=== PATIENT | female | born 1975 | race Caucasian/White ===

== ENCOUNTER → 2017-02-19 | Outpatient (CLI) | payer BC ==
--- NOTE | 2017-02-20 14:41 | MAMMOGRAPHY REPORT ---
BILATERAL DIGITAL SCREENING MAMMOGRAM TOMOSYNTHESIS WITH CAD: 02/19/2017 CLINICAL HISTORY: Routine screening. Patient has no complaints. TECHNIQUE: Breast tomosynthesis in addition to standard 2D mammography was performed. Current study was also evaluated with a Computer Aided Detection (CAD) system. COMPARISON: Prior outside mammograms dated 10/02/2015, 06/27/2014, 07/20/2014. BREAST COMPOSITION: There are scattered areas of fibroglandular density in both breasts. FINDINGS: Again noted is a focal asymmetry in the left upper inner quadrant posteriorly which measur es at least 4.6 x 4.2 cm on the cc view. There are faint calcifications seen within the asymmetry, w hich may be increased compared to prior exams, however, the apparent increase could be due to technic al factors. Recommend spot magnification views and possible breast ultrasound for further evaluation . The remainder of both breasts are stable compared to prior exams, without suspicious masses, calcific ations, or areas of architectural distortion noted. IMPRESSION: ACR BI-RADS CATEGORY 0: INCOMPLETE EVALUATION: NEED ADDITIONAL IMAGING EVALUATION Focal asymmetry with associated calcifications, for which additional imaging evaluation is recommende d. The patient will be called to schedule an appointment. Approximately 10% of breast cancers are not detected with mammography. A negative mammographic report should not delay biopsy if a clinically suggestive mass is present. Cheyanne Connor M.D. /:02/19/2017 16:43:39 Adjunct Spanish Instructor: Corina ALONSO)(Yanet), [facility] letter sent: Addl Imaging 0 BI-RADS Code: ACR BI-RADS Category 0: Incomplete Evaluation: Need Additional Imaging Evaluation
== END | disposition home or self-care (01) ==
LOC: EDSEX → C.MAMM 07:50
PROVIDERS: ATTEND Obstetrics & Gynecology
DX: Z12.31 Encounter for screening mammogram for malignant neoplasm of breast (principal); N64.89 Other specified disorders of breast

== ENCOUNTER → 2017-03-04 | Outpatient (CLI) | payer BC ==
--- NOTE | 2017-03-04 13:29 | MAMMOGRAPHY REPORT ---
UNILATERAL LEFT DIGITAL DIAGNOSTIC MAMMOGRAM AND TARGETED LEFT ULTRASOUND: 03/04/2017 CLINICAL HISTORY: 41-year-old woman called back from screening mammography for a focal asymmetry in t he 10:00 to 11:00 posterior left breast with associated calcification. No family history of breast c ancer. TECHNIQUE: Spot magnification left CC and ML views were obtained. COMPARISON: Comparison is made to exams dated: 02/19/2017 mammogram - [facility], 1 09/19/2013 mammogram, 07/20/2014 ultrasound, and 06/27/2014 mammogram - [facility]. BREAST COMPOSITION: There are scattered areas of fibroglandular density in the left breast. FINDINGS: There is a 4.1 x 3.1 cm focal asymmetry in the upper inner posterior left breast with assoc iated punctate microcalcifications throughout asymmetry. There is no architectural distortion associ ated with the asymmetry and the microcalcifications appear similar in number and distribution to the previous spot compression views obtained on 07/20/2014. This asymmetry could represent the patient's baseline pattern or benign glandular tissue. Given the slight increased prominence on screening osmany mography, a short interval follow-up diagnostic mammogram including repeat spot magnification views i s recommended to ensure stability in 6 months. Targeted ultrasound was also performed in the left breast upper inner quadrant. An island of dense g landular tissue and a few cystic areas within are identified in the 10:00 left breast, 12 cm from the nipple, likely correlating with the asymmetry. No underlying suspicious solid or cystic mass is see n within the area of asymmetry. IMPRESSION: ACR-BI-RADS CATEGORY 3: PROBABLY BENIGN, TARGETED ULTRASOUND ACR-BI-RADS CATEGORY 3: PRO BABLY BENIGN A focal asymmetry measuring 4.1 x 3.1 cm in the upper inner posterior left breast has associated punc cassidy microcalcifications and is most likely benign, given that it does not appear significantly perez ed from the 07/20/2014 diagnostic mammograms. However, a short interval follow-up diagnostic left ma mmogram and repeat spot magnification views is recommended to ensure stability in 6 months. These results and recommendations were discussed with the patient at the time of the exam. She tenta tively scheduled a follow-up appointment prior to leaving our department. Approximately 10% of breast cancers are not detected with mammography. A negative mammographic report should not delay biopsy if a clinically suggestive mass is present. Kathy Harvey M.D. ay/:03/04/2017 10:08:11 News Copy Editor: Brinda ALONSO)(Yanet), [facility] letter sent: Follow Up Recommended 3 BI-RADS Code: ACR-BI-RADS Category 3: Probably Benign Ultrasound BI-RADS: ACR-BI-RADS Category 3: Pr obably Benign
== END | disposition home or self-care (01) ==
LOC: C.MAMM 08:43
PROVIDERS: ATTEND Obstetrics & Gynecology
DX: R92.0 Mammographic microcalcification found on diagnostic imaging of breast (principal); N64.89 Other specified disorders of breast

== ENCOUNTER → 2017-09-03 | Outpatient (CLI) | payer BC ==
--- NOTE | 2017-09-03 13:41 | MAMMOGRAPHY REPORT ---
UNILATERAL LEFT DIGITAL DIAGNOSTIC MAMMOGRAM TOMOSYNTHESIS WITH CAD: 09/03/2017 CLINICAL HISTORY: 42-year-old woman presents for follow-up in the left breast for a focal asymmetry i n the upper inner quadrant posteriorly, with associated punctate microcalcification. TECHNIQUE: Left breast tomosynthesis in addition to standard 2D mammography was performed. Spot magn ification left CC and ML views were also obtained. Current study was also evaluated with a Computer Aided Detection (CAD) system. COMPARISON: Comparison is made to exams dated: 03/04/2017 ultrasound, 03/04/2017 mammogram, 02/19/2017 mammogram - [facility], 07/20/2014 mammogram, 07/20/2014 ultrasound, and [facility]/27/2014 [facility]. BREAST COMPOSITION: There are scattered areas of fibroglandular density in the left breast. FINDINGS: The glandular pattern of the left breast is similar to prior mammograms. Again noted is a focal asymmetry in the upper inner posterior left breast. It measures approximately 4.9 cm in AP by 3.7 cm in transverse by 3.3 cm in craniocaudal dimension. When comparing to the prior diagnostic osmany mograms and spot magnification views performed 02/19/2017 this does not appear significantly changed, given slight differences in positioning and measuring technique. Again noted are associated faint p unctate microcalcifications throughout the area of asymmetry. No new spiculation, architectural dist ortion or definite increased in size is identified. This appears similar dating back to the 2014 scr eening and diagnostic mammograms and difference in appearance may be in part due to inclusion of more posterior breast tissue on the current exam. No other new suspicious masses, asymmetries, areas of distortion or calcification are seen in the visualized left breast. The focal asymmetry most likely represents an island of benign fibroglandular tissue but another close follow-up left diagnostic josse synthesis mammogram including spot magnification views is recommended to ensure longer stability. IMPRESSION: ACR-BI-RADS CATEGORY 3: PROBABLY BENIGN Stable size and visual appearance of an approximately 4 x 3 cm focal asymmetry with associated puncta te microcalcification in the upper inner posterior left breast, when comparing to recent diagnostic m ammograms. It is unclear if the appearance is slightly different comparing to the 2014 mammograms du e to positioning and inclusion of posterior breast tissue. Nevertheless, another short interval foll ow-up left diagnostic tomosynthesis mammogram including spot magnification views is recommended to en sure longer stability. Annual right mammography will also be due at that time. These results and recommendations were discussed with the patient at the time of the exam. Approximately 10% of breast cancers are not detected with mammography. A negative mammographic report should not delay biopsy if a clinically suggestive mass is present. Kathy Harvey M.D. ay/:09/03/2017 11:55:41 In Home Nanny: Ronel SCHAEFER(Sean)(Yanet), [facility] letter sent: Follow Up Recommended 3 BI-RADS Code: ACR-BI-RADS Category 3: Probably Benign
== END | disposition home or self-care (01) ==
LOC: C.MAMM 10:01
PROVIDERS: ATTEND Obstetrics & Gynecology
DX: R92.8 Other abnormal and inconclusive findings on diagnostic imaging of breast (principal); N64.89 Other specified disorders of breast